=== PATIENT | female | born 2000 | race African-American/Black ===

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

== ENCOUNTER 2022-09-25 16:20 | Emergency (ER) | payer MEDICAID ==
[~2022-09-25] VITALS: Ht 170.2 cm; Wt 53.5 kg
[2022-09-25 16:20] VITALS: BP_SYST 116
[2022-09-25 19:11] VITALS: BP_SYST 118
== END 2022-09-25 19:11 | disposition home or self-care (01) ==
LOC: SED 16:20
DX: N89.8 Other specified noninflammatory disorders of vagina (principal); R11.2 Nausea with vomiting, unspecified; Z79.899 Other long term (current) drug therapy; R42 Dizziness and giddiness; R19.7 Diarrhea, unspecified
CPT/HCPCS: 36415; 81025; 87210-TC; 87491; 99284